=== PATIENT | male | born 1960 | race Caucasian/White ===

== ENCOUNTER → 2016-10-23 | Outpatient (CLI) | payer OTHER ==
--- NOTE | ~2016-10-23 | CT138 ---
[facility]. [facility] A Service [facility] RADIOLOGY TEXT RESULTS PATIENT: YANETH MUELLER LOCATION: [facility] : 56 UNIT #: [id number] AGE: [address]: Leandro Back MD SEX: M ORDER DR: [id number] [address] [address] [id number] O MR#: [id number] Acc #: [id number] NAME: YANETH MUELLER : 1960 SEX: M STUDY DATE/TIME: 10/23/2016 16:46 UNIT: [facility] ROOM: STUDY DESCRIPTION: CT Lung screening initial Attending Physician: Leandro Back M.D. Ordering Physician: Leandro Back M.D. Primary Care Physician: Leandro Back M.D. MEDICAL IMAGING REPORT This report is preliminary unless electronic signature is present. EXAM CT chest, lung cancer screening protocol performed without contrast on 10/23/2016 INDICATIONS A 56-year-old male presenting for additional lung cancer screening. Baseline study. A 40 pack year history of tobacco abuse. History of thyroid malignancy and thyroidectomy in June 23, 2013/October 2013. TECHNIQUE This CT exam was performed with one or more of the following radiation dose reduction techniques: automatic exposure control, adjustment of mA and/or kV according to patient size, and iterative reconstruction. Noncontrast CT of the chest was performed utilizing a low-dose lung cancer screening protocol. COMPARISON CT chest 04/15/[address] chest: No suspicious lung nodule identified. No pleural effusion. No evidence of pneumonia or pneumothorax. There is a subtle faintly calcified nodular density in the superior segment of the right lower lobe that is unchanged from 2013 and therefore benign based on long-term stability. Similar very tiny 2-3 mm area of subpleural nodularity in the right upper lobe also is unchanged from 2013 and therefore benign based on long-term stability. The patient is status post thyroidectomy. There is no pericardial effusion or mediastinal adenopathy. No axillary adenopathy. Aorta unremarkable. Reactive-appearing mediastinal nodes are present. [facility] A Service [facility] RADIOLOGY TEXT RESULTS PATIENT: YANETH MUELLER LOCATION: [facility] : 56 UNIT #: [id number] AGE: [address]: Leandro Back MD SEX: M ORDER DR: Included upper abdomen demonstrates nonobstructing stones in both kidneys and a stable cyst in the caudate lobe of the liver. There is diverticulosis of the colon. There is degenerative change in the thoracic spine. IMPRESSION 1. No suspicious lung nodule identified. Stable noncalcified nodules in the right lung dating back to 2012 are benign based on termite control servicer stability. Lungs otherwise are There are benign based on long-term stability. Lungs otherwise are essentially clear. 2. Status post thyroidectomy. 3. Upper abdomen demonstrates nonobstructing stones in both kidneys, stable cyst in the caudate lobe of the liver, and incidental diverticulosis. 4. Lung RADS category 1. Recommend continued annual screening with low-dose CT in 12 months. Dictated by... Vitaliy Barrera M.D. THIS IS AN ELECTRONICALLY VERIFIED REPORT Vitaliy Barrera M.D. at 10/24/2016 5:17 PM Charmaine TD: 10/24/2016 12:10 JOB #: [id number] MEDICAL IMAGING REPORT Page 1 of 1
== END | disposition home or self-care (01) ==
LOC: SCT 16:31
DX: F17.200 Nicotine dependence, unspecified, uncomplicated (principal); R91.8 Other nonspecific abnormal finding of lung field; E89.0 Postprocedural hypothyroidism; N20.0 Calculus of kidney; K76.89 Other specified diseases of liver
CPT/HCPCS: G0297